=== PATIENT | female | born 2005 | race Caucasian/White ===

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

== ENCOUNTER 2024-01-07 18:40 | Emergency (ER) | payer OTHER, SELFPAY ==
[2024-01-07 19:42] VITALS: BP 121/76; PULSE 140; RESP 16; TEMP 36.9; O2SAT 97; BMI 36.1
--- NOTE | 2024-01-07 19:45 | EXP.UTC ---
Discharge Plan Disposition Patient Disposition: Still a Patient Prescriptions Prescriptions: No Action levocetirizine [Xyzal] 5 mg tablet 5 mg PO DAILY omeprazole 20 mg capsule,delayed release(DR/EC) 40 mg PO DAILY 28 Days Qty: 56 0RF ondansetron 4 mg tablet,disintegrating 4 mg PO Q8H PRN (Reason: nausea and vomiting) Qty: 30 0RF omeprazole magnesium 10 mg susp,delayed release for recon 20 mg PO DAILY 30 Days Qty: 60 2RF fluticasone propionate [Flonase Allergy Relief] 50 mcg/actuation spray,suspension 1 spray intranasal BID Qty: 16 0RF Rx Instructions: administer into each nostril cetirizine [Zyrtec] 10 mg tablet 10 mg PO DAILY Qty: 30 0RF azithromycin [Zithromax Z-Kali] 250 mg tablet See Rx Instructions .ROUTE .COMPLEX 5 Days Qty: 6 0RF Rx Instructions: For 250 mg dose pack: take 500 mg today (day 1), then 250 mg for 4 days (days 2-5) methylprednisolone [Medrol (Kali)] 4 mg tablets,dose pack See Rx Instructions .Route .COMPLEX 6 Days Qty: 21 0RF Rx Instructions: taper pack; ondansetron 4 mg tablet,disintegrating 4 mg PO QID PRN (Reason: nausea and vomiting) Qty: 10 0RF Referrals Follow up/Referrals: Michelle Parker APRN [Primary Care Provider] - See instructions Print Language Print Language: Macedonian Discharge ED Provider: Karyn Crocker [facility] [place] General Stated complaint: lightheaded elevated Pulse Mode of Arrival: Ambulatory Source of Information: Patient Limitations: No Limitations Time Seen by Provider: 01/07/24 19:45 Description of Symptoms (Recalled from Triage Doc. by RN): Reports lightheadedness, headache and heart racing. HEENT Symptoms (Recalled from RN notes): No Resp Symptoms (Recalled from RN notes): No Skin Symptoms (Recalled from RN notes): No MS Symptoms (Recalled from RN notes): Yes Functional Status (Recalled from RN notes): wnl History of Present Illness Provider Complaint: Patient states that she has been feeling lightheaded States her ear was bothering her a few days ago but today she feels like her head is heavy and she can feel her heart racing States that her light headedness got worse after her heart started Racing states feels like it speeds up then will slow down and repeat Related Data Home Medications ?Medication ?Instructions ?Recorded ?Confirmed levocetirizine 5 mg tablet (Xyzal) 5 mg PO DAILY Allergy Symptoms 04/17/22 10/30/23 Previous Rx's ?Medication ?Instructions ?Recorded cetirizine 10 mg tablet (Zyrtec) 10 mg PO DAILY #30 tabs 02/20/23 fluticasone propionate 50 1 spray intranasal BID #16 grams 02/20/23 mcg/actuation nasal spray,suspension (Flonase Allergy Relief) azithromycin 250 mg tablet See Rx Instructions PO .COMPLEX 5 10/26/23 (Zithromax Z-Kali) days #6 tabs methylprednisolone 4 mg tablets in See Rx Instructions .Route 10/26/23 a dose pack (Medrol (Kali)) .COMPLEX 6 days #21 tabs omeprazole 20 mg capsule,delayed 40 mg (2 x 20 mg) PO DAILY acid 10/30/23 release reflux 4 weeks #56 caps ondansetron 4 mg disintegrating 4 mg PO Q8H PRN nausea and 10/30/23 tablet vomiting #30 tabs ondansetron 4 mg disintegrating 4 mg PO QID PRN nausea and 10/31/23 tablet vomiting #10 tabs omeprazole magnesium 10 mg oral 20 mg PO DAILY 30 days #60 ea 11/02/23 suspension,delayed release Allergies Allergy/AdvReac Type Severity Reaction Status Date / Time No Known Allergies Allergy Verified 10/30/23 15:51 Worker's Comp Is this a Worker's Comp case?: No [facility] Disclaimer: The information contained in this section may have been updated after the patient was seen, as this information can be updated by other users. Medical History Anxiety Hypothyroidism Otitis media Thyroid disease Urticaria Acute maxillary sinusitis URI (upper respiratory infection) Patient left before triage assessment Influenza A Continue Tylenol/Motrin as needed for fever, rest, fluids and Bromfed Influenza Influenza-like illness Nausea & vomiting Family History Mother Diabetes Social History Smoking Status: Unknown if ever smoked alcohol intake: never substance use type: denies use current occupational status: other Travel in the last 8 weeks: None household members: family housing: house ROS Obtained: Yes All systems reviewed & no additional complaints except as documented and Yes Systems reviewed as appropriate & no additional complaints except as documented Constitutional Constitutional: Reports system reviewed and no additional complaints, except as documented, Reports as per HPI and Denies headache(s) ENT Ears, Nose, Mouth, and Throat: Reports system reviewed and no additional complaints, except as documented, Reports as per HPI, Denies abnormal hearing, Denies disequilibrium, Reports dizziness and Denies headache(s) Cardiovascular Cardiovascular: Reports system reviewed and no additional complaints, except as documented, Reports as per HPI, Denies chest pain, Denies chest pain at rest, Denies edema, Reports lightheadedness, Reports palpitations and Reports rapid heart rate Respiratory Respiratory: Reports system reviewed and no additional complaints, except as documented and Reports as per HPI Gastrointestinal Gastrointestingal: Reports system reviewed and no additional complaints, except as documented and as per HPI Genitourinary Female Genitourinary: Reports system reviewed and no additional complaints, except as documented and Reports as per HPI Musculoskeletal Musculoskeletal: Reports system reviewed and no additional complaints, except as documented, Reports as per HPI, Denies numbness and Denies tingling Integumentary/Breasts Skin/Breast: Reports system reviewed and no additional complaints, except as documented and Reports as per HPI Neurologic Neurologic: Reports system reviewed and no additional complaints, except as documented, Reports as per HPI, Denies abnormal hearing, Denies abnormal movements, Denies abnormal speech, Denies confusion, Denies convulsions, Denies disequilibrium, Reports dizziness, Denies headache(s), Denies numbness and Denies tingling Endocrine Endocrine: Reports palpitations Physical Exam General General appearance: alert and in no apparent distress ENT ENT exam: Present mucous membranes moist Chest Chest inspection: Present normal inspection and symmetric chest wall rise Respiratory Respiratory exam: Present normal lung sounds bilaterally; Absent respiratory distress or wheezes Cardiovascular Cardiovascular exam: Present tachycardia Neurological Exam Neurological exam: Present alert, oriented X3 and normal gait Medical Decision Making Medical Records Screening: Per USPSTF and CDC recommendations, given the prevalence of disease in our region, it is our hospital?s policy to screen for HIV and viral Hepatitis for all patients aged 18 and over and those with ongoing risk factors. Timoteo Inquiry Pt receiving controlled substance: No Timoteo was queried for this patient: No Vital Signs: 01/07/24 19:42 Temperature 98.4 F Temperature Source Oral Pulse Rate [Radial] 140 H Respiratory Rate 16 Blood Pressure [Right Arm] 121/76 Blood Pressure Mean [Right Arm] 91 Blood Pressure Source [Right Arm] Automatic Cuff Blood Pressure Position [Right Arm] Sitting 02 Sat by Pulse Oximetry 97 Oxygen Delivery Method Room Air Medical Decision Narrative: Patient reports has been feeling lightheaded and this evening she was eating and felt like she was going to fall over due to the lightheadedness and then felt like her heart started racing so mother brought her in, discussed with patient and due to complaints recommended transfer to the ED for furhther work up and evaluation and she agreed noted in UTC that patient was tachy rate of 140's then rate slowed for several seconds into the 80's then elevated again in the 140's-150 called ED awaiting room, as getting the EKG patient became sweaty states she doesnt feel well and started to gag like she was going to vomit and HR decreased to in 70's and patient states felt like she was going to pass out, patient was moved to room 8
--- NOTE | 2024-01-07 19:57 | ECG_ITS ---
APPROVED REPORT Exam: Resting ECG HR:78 bpm ECG Measurements Heart Rate 78 AXES RI 151 P 45 QRSd 93 QRS 84 QT 343 T 41 QTc 376 Conclusion SINUS RHYTHM NORMAL ECG Electronically signed by : TIM RIGGS, 01/08/2024 00:03:55
--- NOTE | 2024-01-07 20:30 | XR_ITS ---
PROCEDURE INFORMATION: Exam: XR Chest Exam date and time: 01/07/2024 8:52 PM Age: 18 years old Clinical indication: Shortness of breath; Additional info: SOA TECHNIQUE: Imaging protocol: Radiologic exam of the chest. Views: 2 views. COMPARISON: CR XR CHEST 2V 10/27/2023 10:17 PM FINDINGS: Lungs: Unremarkable. No consolidation. Pleural spaces: Unremarkable. No pleural effusion. No pneumothorax. Heart/Mediastinum: Unremarkable. No cardiomegaly. Bones/joints: Unremarkable. IMPRESSION: No acute findings.
[2024-01-07 20:42] LABS: Basophils # 0.1 K/mm3 (0-0.2); Basophils % 0.4 % (0.1-2.0); Eosinophils % 0.3 % (0.1-12.0); Hematocrit 41.4 % (37.0-47.0); Hemoglobin 14.1 g/dL (12.2-16.2); Lymphocytes # 1.1 K/mm3 (0.7-4.5); Lymphocytes % 10.7 % (10-50); Mean Corpuscular Hemoglobin 27.6 pg (27.0-31.2); Mean Corpuscular Volume 81.1 fl (81-99); Monocytes # 0.4 K/mm3 (0.1-1.0); Monocytes % 3.4 % (1.7-9.3); Neutrophils # 8.6 K/mm3 (1.8-7.8); Neutrophils % 85.1 % (37.0-80.0); Platelet Count 269 K/mm3 (142-424); Red Blood Count 5.11 M/mm3 (4.20-5.40); Red Cell Distribution Width 14.8 % (11.5-17.5); White Blood Count 10.1 K/mm3 (4.5-13.0)
[2024-01-07 20:53] LABS: Alanine Aminotransferase 17 U/L (12-78); Albumin/Globulin Ratio 1.2 (1.1-1.8); Alkaline Phosphatase 91 U/L (38-126); Anion Gap 13.9 mEq/L (5-15); Aspartate Amino Transferase 26 U/L (14-36); Bilirubin,Total 0.8 mg/dl (0.2-1.3); Blood Urea Nitrogen 11 mg/dl (7-17); Calcium 9.8 mg/dl (8.4-10.2); Carbon Dioxide 27 mmol/L (22.0-30.0); Chloride 102 mmol/L (98-107); Creatinine Clearance Estimated 220 mL/min (50-200); Estimated Glomerular Filt Rate 129 ml/min (>60); GFR (African American) 156 ML/MIN (>60); Globulin 4.1 g/dL (1.3-3.2); Glucose 117 mg/dl (74-100); HCG Qualitative, Serum Negative (Negative); Magnesium 1.8 mg/dl (1.6-2.3); Potassium 3.9 mmoL/L (3.5-5.1); Sodium 139 mmol/L (136-145); Total Protein,Serum 9.1 g/dl (6.3-8.2)
[2024-01-07 20:57] LABS: D-Dimer < 0.25 ug/mL (0.0-0.5)
[2024-01-07 21:05] LABS: MANUAL DIFFERENTIAL MANUAL DIFFERENTIAL (MANUAL DIFF)
[2024-01-07 21:07] LABS: Troponin I < 0.01 ng/ml (0.00-0.034)
[2024-01-07 21:11] LABS: T4 (Thyroxine) 8.5 ug/dl (5.53-11.0)
[2024-01-07] MEDS: 0.9 % SODIUM CHLORIDE 1000ML 1,000 ML 999 ML IV (21:23)
[2024-01-07] MEDS: LORazepam 2MG/ML VIAL 0.5 MG IV (21:25)
--- NOTE | 2024-01-07 21:33 | HMH.EDGENADL ---
Discharge Plan Disposition Patient Disposition: Home, Self-Care Condition: Good Prescriptions Prescriptions: New fluticasone propionate [Flonase Allergy Relief] 50 mcg/actuation spray,suspension 1 spray intranasal BID Qty: 16 0RF Rx Instructions: administer into each nostril cetirizine [Zyrtec] 10 mg tablet 10 mg PO DAILY Qty: 30 0RF hydroxyzine HCl 25 mg tablet 25 mg PO Q8H PRN (Reason: anxiety) Qty: 20 0RF No Action levocetirizine [Xyzal] 5 mg tablet 5 mg PO DAILY omeprazole 20 mg capsule,delayed release(DR/EC) 40 mg PO DAILY 28 Days Qty: 56 0RF ondansetron 4 mg tablet,disintegrating 4 mg PO Q8H PRN (Reason: nausea and vomiting) Qty: 30 0RF omeprazole magnesium 10 mg susp,delayed release for recon 20 mg PO DAILY 30 Days Qty: 60 2RF fluticasone propionate [Flonase Allergy Relief] 50 mcg/actuation spray,suspension 1 spray intranasal BID Qty: 16 0RF Rx Instructions: administer into each nostril cetirizine [Zyrtec] 10 mg tablet 10 mg PO DAILY Qty: 30 0RF azithromycin [Zithromax Z-Kali] 250 mg tablet See Rx Instructions .ROUTE .COMPLEX 5 Days Qty: 6 0RF Rx Instructions: For 250 mg dose pack: take 500 mg today (day 1), then 250 mg for 4 days (days 2-5) methylprednisolone [Medrol (Kali)] 4 mg tablets,dose pack See Rx Instructions .Route .COMPLEX 6 Days Qty: 21 0RF Rx Instructions: taper pack; ondansetron 4 mg tablet,disintegrating 4 mg PO QID PRN (Reason: nausea and vomiting) Qty: 10 0RF Referrals Follow up/Referrals: Michelle Parker APRN [Primary Care Provider] - See instructions Faizan Carlson MD [Staff Physician] - See instructions Activity Restrictions/Add. Instructions Additional Instructions/Restrictions: You were evaluated in the emergency department today. Please call cardiology to schedule an appointment to follow-up with regards to results from your Holter monitor. Make sure you stay hydrated. Use the prescriptions provided to you for your left ear effusion. Follow-up closely with your primary care provider. Return to the emergency department for new or worsening symptoms Clinical Impressions Clinical Impression: Anxiety, Sinus tachycardia, Acute effusion of left ear Stand Alone Forms Stand Alone Forms: Work/School Release Instructions Patient Instructions: DI for Tachycardia Print Language Print Language: Ukrainian Discharge ED Provider: Marlyn Du General Adult HPI General Stated complaint: lightheaded elevated Pulse Time Seen by Provider: 01/07/24 19:45 Mode of Arrival: Ambulatory Source of Information: Patient Limitations: No Limitations Description of Symptoms (Recalled from ER Triage Doc. by RN): Reports lightheadedness, headache and heart racing. History of Present Illness HPI narrative: This patient is a 18-year-old female with a history of hypothyroidism previously on thyroid medication but no longer on thyroid medication, anxiety not on medication, and GERD presenting to the emergency department for evaluation with concern for palpitations, lightheadedness, and high heart rate. Patient reports that she was eating dinner when suddenly her head felt heavy, and her mom notes that this happened symptoms with her anxiety. She notes that she looked at her Apple Watch and her heart rate was in the 120s while she was sitting there. She went to [facility], where they evaluated her and noted heart rate was in the 140s on their assessment. They note that it was bouncing [id number] between slow and fast heart rates, so they sent the patient over here for further evaluation and management. She notes that she is feeling okay on my assessment with no specific concerns or complaints. She is no longer feeling lightheaded. No pain anywhere. No fevers, chills, chest pain, shortness of breath, cough, congestion, abdominal pain, nausea, vomiting, changes bowel movements, changes in oral intake, urinary symptoms, rashes, or swelling. Related Data Home Medications ?Medication ?Instructions ?Recorded ?Confirmed levocetirizine 5 mg tablet (Xyzal) 5 mg PO DAILY Allergy Symptoms 04/17/22 10/30/23 Previous Rx's ?Medication ?Instructions ?Recorded cetirizine 10 mg tablet (Zyrtec) 10 mg PO DAILY #30 tabs 02/20/23 fluticasone propionate 50 1 spray intranasal BID #16 grams 02/20/23 mcg/actuation nasal spray,suspension (Flonase Allergy Relief) azithromycin 250 mg tablet See Rx Instructions PO .COMPLEX 5 10/26/23 (Zithromax Z-Kali) days #6 tabs methylprednisolone 4 mg tablets in See Rx Instructions .Route 10/26/23 a dose pack (Medrol (Kali)) .COMPLEX 6 days #21 tabs omeprazole 20 mg capsule,delayed 40 mg (2 x 20 mg) PO DAILY acid 10/30/23 release reflux 4 weeks #56 caps ondansetron 4 mg disintegrating 4 mg PO Q8H PRN nausea and 10/30/23 tablet vomiting #30 tabs ondansetron 4 mg disintegrating 4 mg PO QID PRN nausea and 10/31/23 tablet vomiting #10 tabs omeprazole magnesium 10 mg oral 20 mg PO DAILY 30 days #60 ea 11/02/23 suspension,delayed release cetirizine 10 mg tablet (Zyrtec) 10 mg PO DAILY #30 tabs 01/07/24 fluticasone propionate 50 1 spray intranasal BID #16 grams 01/07/24 mcg/actuation nasal spray,suspension (Flonase Allergy Relief) hydroxyzine HCl 25 mg tablet 25 mg PO Q8H PRN anxiety #20 tabs 01/07/24 Allergies Allergy/AdvReac Type Severity Reaction Status Date / Time No Known Allergies Allergy Verified 10/30/23 15:51 [facility] Disclaimer: The information contained in this section may have been updated after the patient was seen, as this information can be updated by other users. Medical History Anxiety Hypothyroidism Otitis media Thyroid disease Urticaria Acute maxillary sinusitis URI (upper respiratory infection) Patient left before triage assessment Influenza A Influenza Influenza-like illness Nausea & vomiting Family History Mother Diabetes Social History Smoking Status: Unknown if ever smoked alcohol intake: never substance use type: denies use current occupational status: other Travel in the last 8 weeks: None household members: family housing: house Other Medical History Have you received the Flu Vaccine for this season: No Have you received the Pneumonia Vaccine: No ROS Obtained: Yes All systems reviewed & no additional complaints except as documented Physical Exam General General appearance: alert, in no apparent distress and obese Head Head exam: atraumatic and normocephalic Eye Eye exam: Present normal appearance, PERRL and EOMI ENT ENT exam: Present normal exam, normal oropharynx, mucous membranes moist and normal external ear exam Neck Neck exam: Present normal inspection, full ROM and trachea midline; Absent tenderness Chest Chest inspection: Present normal inspection and symmetric chest wall rise; Absent tenderness Respiratory Respiratory exam: Present normal lung sounds bilaterally; Absent respiratory distress, wheezes, stridor or accessory muscle use Cardiovascular Cardiovascular exam: Present normal rhythm and tachycardia Abdominal Exam Abdominal exam: Present soft; Absent distention, tenderness or guarding Extremities Exam Extremities exam: Present normal inspection, full ROM and normal capillary refill; Absent tenderness or edema Back Exam Back exam: Present normal inspection and full ROM; Absent tenderness Neurological Exam Neurological exam: Present alert, oriented X3, CN II-XII intact and normal gait; Absent motor sensory deficit Psychiatric Psychiatric exam: Present normal affect and normal mood Skin Skin exam: Present warm and dry Medical Decision Making Medical Records Medical records reviewed: Yes I reviewed the patient's medical records. Screening: Per USPSTF and CDC recommendations, given the prevalence of disease in our region, it is our hospital?s policy to screen for HIV and viral Hepatitis for all patients aged 18 and over and those with ongoing risk factors. Timoteo Inquiry Pt receiving controlled substance: No Vital Signs: 01/07/24 19:42 Temperature 98.4 F Temperature Source Oral Pulse Rate [Radial] 140 H Respiratory Rate 16 Blood Pressure [Right Arm] 121/76 Blood Pressure Mean [Right Arm] 91 Blood Pressure Source [Right Arm] Automatic Cuff Blood Pressure Position [Right Arm] Sitting 02 Sat by Pulse Oximetry 97 Oxygen Delivery Method Room Air Lab Data Lab results reviewed: Yes I reviewed the patient's lab results. Lab Results 01/07/24 19:56: WBC 10.1, RBC 5.11, Hgb 14.1, Hct 41.4, MCV 81.1, MCH 27.6, MCHC 34.0, RDW 14.8, Plt Count 269, MPV 8.0, Neut % (Auto) 85.1 H, Lymph % (Auto) 10.7, [place] % (Auto) 3.4, Eos % (Auto) 0.3, Baso % (Auto) 0.4, Neut # (Auto) 8.6 H, Lymph # (Auto) 1.1, [place] # (Auto) 0.4, Eos # (Auto) 0.0, Baso # (Auto) 0.1, Total Counted 100, Neutrophils % (Manual) 75, Lymphocytes % (Manual) 19, Monocytes % (Manual) 6, Platelet Estimate Normal, RBC Morphology Normal, D-Dimer < 0.25, Sodium 139, Potassium 3.9, Chloride 102, Carbon Dioxide 27, Anion Gap 13.9, BUN 11, Creatinine 0.60, Estimated Creat Clear 220, Estimated GFR 129, Est GFR ( Amer) 156, Glucose 117 H, Calcium 9.8, Magnesium 1.8, Total Bilirubin 0.8, AST 26, ALT 17, Alkaline Phosphatase 91, Troponin I < 0.01, NT-Pro-B Natriuret Pep 60.0, Total Protein 9.1 H, Albumin 5.0, Globulin 4.1 H, Albumin/Globulin Ratio 1.2, TSH 1.79, Thyroxine (T4) 8.5, Serum HCG, Qual Negative 01/07/24 19:56 01/07/24 19:56 Orders (Tests/Meds): ED MEDICATIONS Generic Name Dose Route Start Last Admin Trade Name Freq PRN Reason Stop Dose Admin Sodium Chloride 10 ml 01/07/24 20:54 Sodium Chloride 0.9% 10ml Vial IV 02/06/24 20:53 NEEDED PRN to Dilute Lorazepam inj Discontinued Medications Generic Name Dose Route Start Last Admin Trade Name Freq PRN Reason Stop Dose Admin Sodium Chloride 1,000 mls @ 999 mls/hr 01/07/24 20:54 01/07/24 21:23 Sod Chlor 0.9% 1000ml Bag IV 01/07/24 21:54 999 mls/hr .Q1H1M ONE Administration Lorazepam 0.5 mg 01/07/24 20:54 01/07/24 21:25 Lorazepam 2mg/Ml Vial IV 01/07/24 20:55 0.5 mg ONCE ONE Administration Lorazepam 1 mg 01/07/24 22:01 01/07/24 22:13 Lorazepam 1mg Tablet PO 01/07/24 22:02 1 mg ONCE ONE Administration ORDERS Category Date Time Status CXR 2 view (NOT portable) [XR chest 2V] Stat Exams 01/07/24 20:30 Completed BNP [NT Pro Brain Natriuretic Pep.] Stat Lab 01/07/24 19:56 Completed Complete Blood Count Auto Diff Stat Lab 01/07/24 19:56 Completed Comprehensive Metabolic Panel Stat Lab 01/07/24 19:56 Completed D-Dimer Stat Lab 01/07/24 19:56 Completed MAG [Magnesium] Stat Lab 01/07/24 19:56 Completed Serum [HCG Qualitative, Serum] Stat Lab 01/07/24 19:56 Completed T4 (Thyroxine) Stat Lab 01/07/24 19:56 Completed TSH [Thyroid Stimulating Hormone] Stat Lab 01/07/24 19:56 Completed Trop I [Troponin I] Stat Lab 01/07/24 19:56 Completed Troponin I Q3H Lab 01/07/24 23:30 Ordered Troponin I Q3H Lab 01/08/24 02:30 Ordered Holter Monitor Req by Kathy/ Stat Y 01/07/24 23:02 Ordered ECG Data Tracing #1: I reviewed this ECG and interpreted as documented below: Normal sinus rhythm with a ventricular of [address] changes concerning for ischemia. Normal axis and intervals ECG initial impression date: 01/07/24 ECG initial impression time: 20:02 Medical Decision Narrative: In summary, this patient is a 18-year-old female presenting to the Emergency Department for evaluation of lightheadedness, palpitations, high heart rate. Differential diagnoses considered include but are not limited to dehydration, electrolyte derangements, anxiety, cardiac dysrhythmia. Ruling out the most morbid conditions drove assessment. It should be noted patient's history includes obesity, hypothyroid, GERD, anxiety which are not at goal therapy. This complicates all aspects of care by increasing patient's risk for morbidity. On exam, the patient is lying in bed in no acute distress with no current symptoms at this time. Heart rate is in the low 100s on my assessment. EKG obtained in [facility] viewed and interpreted by myself is reassuring. Workup included CBC, CMP, magnesium, TSH, T4, test, troponin. Patient is given a bolus of IV fluids as well as a small dose of Ativan given the anxiety. I independently interpreted x-ray prior to the radiologist read and noted acute focal consolidation, pulmonary edema, or other concern. Please see their read for final interpretation. Labs were obtained that demonstrated no significant leukocytosis, reassuring chemistry, reassuring thyroid studies, negative troponin. On reassessment, patient had some improvement after administration of fluids and ativan in how she feels but she still has HR in the 110s-120s. Her only other complaint is some left ear fullness, and she does have a serous effusion. For this, I prescribed her Zyrtec and Flonase. Ultimately given her presumably inappropriate sinus tachycardia, I did order her Holter monitor and advised that she follow-up very closely with cardiology for further assessment. I gave strict return precautions and instructions for hydration, prescription for hydroxyzine to treat anxiety, and instructions for close follow-up. She was discharged after all questions were answered Critical Care Critical Care Time Critical Care Time: No
[2024-01-07 21:39] LABS: Lymphocytes % 19 % (10-50); Monocytes % 6 % (2-9); Neutrophils % 75 % (42-76); Total Cells Counted 100
[2024-01-07 21:40] LABS: Platelet Estimate Normal; RBC Morphology Normal; Thyroid Stimulating Hormone 1.79 uIU/mL (0.465-4.68)
[2024-01-07] MEDS: LORazepam 1MG TABLET 1 MG PO (22:13)
--- NOTE | 2024-01-07 22:45 | PC.NURSE ---
unable to get IV established, provider d/c, PO fluids only
[2024-01-08 00:04] VITALS: BP 147/97; PULSE 90; RESP 18; TEMP 36.7; O2SAT 98
== END 2024-01-07 23:55 | disposition home or self-care (01) ==
LOC: UTC 18:45 → ER 20:06
PROVIDERS: Emergency Provider Emergency Medicine; PCP Nurse Practitioner Family
DX: H65.192 Other acute nonsuppurative otitis media, left ear (principal); F41.9 Anxiety disorder, unspecified; R42 Dizziness and giddiness; R51.9 Headache, unspecified; R00.2 Palpitations; R00.0 Tachycardia, unspecified
CPT/HCPCS: 71046; 80050; 80053; 83735; 83880; 84436; 84443; 84484; 84703; 85007; 85025; 85378; 93005; 93225; 93227; 96361; 96374; 99284; J2060; J7030